=== PATIENT | male | born 1980 | race African-American/Black ===

== ENCOUNTER 2017-07-02 07:06 | Inpatient (IN) | payer MEDICAID ==
[~2017-07-02] VITALS: Ht 177.8 cm; Wt 130.6 kg
[2017-07-02] VITALS (7 sets, daily range): BP systolic 126–168; BP diastolic 71–110
[2017-07-02] MEDS ORDERED: FUROSEMIDE 40MG/4ML VIAL IV STA (07:18)
[2017-07-02] MEDS ORDERED: NITROGLYCERIN 50MG PREMIX 250 ML IV ONE (07:30)
[2017-07-02 07:46] LABS: BASOPHILS % 0.8 % (0.0-2.0); EOSINOPHILS % 3.6 % (0.0-5.0); HEMATOCRIT. 40.6 % (42.0-52.0); HEMOGLOBIN. 13.5 g/dL (14.0-18.0); LYMPHOCYTES % 26.9 % (20.0-50.0); MEAN CORPUSCULAR HEMOGLOBIN 29.3 pg (28.0-32.0); MEAN CORPUSCULAR VOLUME 88.2 fL (80.0-94.0); MEAN PLATELET VOLUME 9.5 fl (7.4-10.4); MONOCYTES % 5.3 % (2.0-8.0); NEUTROPHILS % 63.4 % (40.0-76.0); PLATELET 263 x1000/uL (130-400); RED CELL DISTRIBUTION WIDTH 16.6 % (11.6-14.6)
[2017-07-02 07:54] LABS: INR 1.2; PARTIAL THROMBOPLASTIN TIME 26.2 sec (23.4-31.0); PROTHROMBIN TIME 12.5 sec (9.4-11.6)
[2017-07-02 08:06] LABS: CARBON DIOXIDE 28 mEq/L (21-32); CHLORIDE 106 mEq/L (98-107)
[2017-07-02] MEDS ORDERED: NITROGLYCERIN OINT 1GM/INCH UDPKT TD ONE (08:30)
[2017-07-02] MEDS ORDERED: LIDOCAINE HCL/PF 1% 2ML VIAL ONE (08:47)
[2017-07-02 09:30] LABS: BG BASE EXCESS 2.7 mmol/L (-2.0-2.0); BG BILEVEL POS AIRWAY PRESSURE 15/5; BG CARBOXYHEMOGLOBIN 1.2 % (0.5-1.5); BG DEOXYHEMOGLOBIN 0.2 % (0.0-5.0); BG HCO3 ACT 26.1 mmol/L (22.0-26.0); BG METHEMOGLOBIN 0.5 % (0.0-1.5); BG OXYGEN SATURATION 99.8 % (92.0-98.5); BG OXYHEMOGLOBIN 98.1 % (94.0-97.0); BG PCO2 36.6 mmHg (35.0-45.0); BG PH 7.471 (7.350-7.450); BG PO2 457.9 mmHg (75.0-100.0); BG SAMPLE SITE RIGHT BRACHIAL; BG TOTAL HEMOGLOBIN 16.5 g/dL (12.0-18.0); BG VENT MODE MASK - BIPAP; BG VENT RATE 20 set
[2017-07-02] MEDS ORDERED: METO50TA5 PO (10:39)
[2017-07-02] MEDS ORDERED: POTA10TA11 PO (10:39)
[2017-07-02] MEDS ORDERED: INSLIS SQ (10:39)
[2017-07-02] MEDS ORDERED: SPIR25TA4 PO (10:39)
[2017-07-02] MEDS ORDERED: ATOR10TA69 PO (10:39)
[2017-07-02] MEDS ORDERED: ASPI-1159 PO (10:39)
[2017-07-02] MEDS ORDERED: LISI-604 PO (10:39)
[2017-07-02] MEDS ORDERED: IPRATROPIUM/ALBUTEROL 0.5-3(2.5)MG/3ML NEB HHN PRN (11:30)
[2017-07-02] MEDS: IPRATROPIUM/ALBUTEROL 0.5-3(2.5)MG/3ML NEB HHN SCH ×3 (11:50→21:43)
[2017-07-02] MEDS: INSULIN LISPRO 100 UNITS/ML SUBCUT SCH ×3 (13:00→21:00)
[2017-07-02] MEDS ORDERED: DEXTROSE 50% WATER 50ML SYRINGE IV PRN (13:00)
[2017-07-02] MEDS: FUROSEMIDE 40MG/4ML VIAL IVP SCH (14:07)
[2017-07-02] MEDS: BLOOD SUGAR DIAGNOSTIC STRIP TEST SCH ×2 (18:13→21:11)
[2017-07-02] MEDS ORDERED: ENOXAPARIN 40MG/0.4ML SYR SUBCUT SCH (18:45)
[2017-07-02] MEDS ORDERED: DOCUSATE SODIUM 100MG CAPSULE PO PRN (19:00)
[2017-07-02] MEDS ORDERED: MAGNESIUM/ALUMINUM HYDROXIDE/SIMETHICONE 30ML UDC PO PRN (19:00)
[2017-07-02] MEDS ORDERED: GUAIFENESIN 200MG/10ML SUGAR FREE UDC PO PRN (19:00)
[2017-07-02] MEDS ORDERED: IPRATROPIUM/ALBUTEROL 0.5-3(2.5)MG/3ML NEB INH PRN (19:00)
[2017-07-02] MEDS ORDERED: ONDANSETRON HCL 4MG/2ML VIAL IV PRN (19:00)
[2017-07-02] MEDS ORDERED: DIPHENHYDRAMINE 50MG/ML VIAL IV PRN (19:00)
[2017-07-02] MEDS ORDERED: CLONIDINE 0.1MG TABLET PO PRN (19:00)
[2017-07-02] MEDS ORDERED: ACETAMINOPHEN 650MG SUPP PR PRN (19:00)
[2017-07-02] MEDS ORDERED: NA PHOS,M-B/NA PHOS,DI-BA ENEMA 118ML PR PRN (19:00)
[2017-07-02] MEDS: SODIUM CHLORIDE 0.9% INJ 3ML FLUSH IVF SCH (21:21)
[2017-07-02] MEDS: ENOXAPARIN 30MG/0.3ML SYR SUBCUT SCH (21:21)
[2017-07-03] VITALS (16 sets, daily range): BP systolic 125–158; BP diastolic 55–107
[2017-07-03 00:11] LABS: TROPONIN I 0.21 ng/mL (0.00-0.04)
[2017-07-03] MEDS: IPRATROPIUM/ALBUTEROL 0.5-3(2.5)MG/3ML NEB HHN SCH ×6 (00:40→20:09)
[2017-07-03 06:21] LABS: BASOPHILS % 0.5 % (0.0-2.0); EOSINOPHILS % 2.3 % (0.0-5.0); HEMATOCRIT. 41.9 % (42.0-52.0); HEMOGLOBIN. 14.1 g/dL (14.0-18.0); LYMPHOCYTES % 26.5 % (20.0-50.0); MEAN CORPUSCULAR HEMOGLOBIN 29.2 pg (28.0-32.0); MEAN CORPUSCULAR VOLUME 86.7 fL (80.0-94.0); MEAN PLATELET VOLUME 9.8 fl (7.4-10.4); MONOCYTES % 7.9 % (2.0-8.0); NEUTROPHILS % 62.8 % (40.0-76.0); PLATELET 261 x1000/uL (130-400); RED BLOOD CELL COUNT 4.83 mill/uL (4.7-6.1); RED CELL DISTRIBUTION WIDTH 16.5 % (11.6-14.6)
[2017-07-03] MEDS: SODIUM CHLORIDE 0.9% INJ 3ML FLUSH IVF SCH ×3 (06:47→21:03)
[2017-07-03 07:11] LABS: CHLORIDE 103 mEq/L (98-107)
[2017-07-03 07:22] LABS: CARBON DIOXIDE 29 mEq/L (21-32); CREATINE KINASE 196 IU/L (39-308); HDL CHOLESTEROL 27 mg/dL (40-59); LDL CHOLESTEROL 70 mg/dL (5-100); TROPONIN I 0.21 ng/mL (0.00-0.04)
[2017-07-03] MEDS: BLOOD SUGAR DIAGNOSTIC STRIP TEST SCH ×4 (07:30→21:01)
[2017-07-03] MEDS: INSULIN LISPRO 100 UNITS/ML SUBCUT SCH ×4 (08:00→21:00)
[2017-07-03] MEDS ORDERED: FUROSEMIDE 40MG/4ML VIAL IVP SCH (09:00)
[2017-07-03] MEDS: FUROSEMIDE 40MG/4ML VIAL IVP SCH (09:02)
[2017-07-03] MEDS: POTASSIUM CHLORIDE 20MEQ TABLET SR PO SCH ×2 (09:09→14:16)
[2017-07-03] MEDS: ENOXAPARIN 30MG/0.3ML SYR SUBCUT SCH ×2 (10:21→21:03)
[2017-07-04] VITALS (10 sets, daily range): BP systolic 112–166; BP diastolic 43–110
[2017-07-04] MEDS: IPRATROPIUM/ALBUTEROL 0.5-3(2.5)MG/3ML NEB HHN SCH ×4 (00:14→11:14)
[2017-07-04] MEDS: SODIUM CHLORIDE 0.9% INJ 3ML FLUSH IVF SCH (06:32)
[2017-07-04 06:52] LABS: CLARITY URINE CLEAR (CLEAR); COLOR URINE YELLOW (YELLOW); GLUCOSE URINE NEGATIVE (NEGATIVE); KETONES URINE NEGATIVE (NEGATIVE); LEUKOCYTE ESTERASE URINE NEGATIVE (NEGATIVE); NITRITE URINE NEGATIVE (NEGATIVE); OCCULT BLOOD URINE NEGATIVE (NEGATIVE); PROTEIN URINE NEGATIVE (NEGATIVE); SPECIFIC GRAVITY URINE 1.011 (1.005-1.030)
[2017-07-04 07:06] LABS: *AMPHETAMINES SCREEN URINE NEGATIVE (NEGATIVE); *BARBITURATES SCREEN URINE NEGATIVE (NEGATIVE); *BENZODIAZEPINES SCREEN URINE NEGATIVE (NEGATIVE); *COCAINE SCREEN URINE NEGATIVE (NEGATIVE); CANNABINOID URINE SCREEN PRESUMTIVE POSITIVE (NEGATIVE); METHADONE URINE SCREEN NEGATIVE (NEGATIVE); OPIATES URINE SCREEN NEGATIVE (NEGATIVE); PHENCYCLIDINE URINE SCREEN NEGATIVE (NEGATIVE)
[2017-07-04 07:15] LABS: CARBON DIOXIDE 29 mEq/L (21-32); CHLORIDE 104 mEq/L (98-107); TROPONIN I 0.15 ng/mL (0.00-0.04)
[2017-07-04] MEDS: INSULIN LISPRO 100 UNITS/ML SUBCUT SCH ×2 (08:00→13:00)
[2017-07-04] MEDS: FUROSEMIDE 40MG/4ML VIAL IVP SCH (08:22)
[2017-07-04] MEDS: ENOXAPARIN 30MG/0.3ML SYR SUBCUT SCH (08:22)
== END 2017-07-04 15:00 | disposition home or self-care (01) | DRG 133 ==
LOC: ER 07:31 → ENRESERV 08:03 → 5EST 08:49
PROVIDERS: ADMIT Family Medicine; ATTEND Family Medicine
PROC: 5A09357 Assistance with Respiratory Ventilation, Less than 24 Consecutive Hours, Continuous Positive Airway Pressure (ICD-10-PCS; principal; 2017-07-02)
DX: J96.00 Acute respiratory failure, unspecified whether with hypoxia or hypercapnia (principal); I50.43 Acute on chronic combined systolic (congestive) and diastolic (congestive) heart failure; I42.9 Cardiomyopathy, unspecified; E11.65 Type 2 diabetes mellitus with hyperglycemia; E44.1 Mild protein-calorie malnutrition; J44.9 Chronic obstructive pulmonary disease, unspecified; Z68.41 Body mass index [BMI] 40.0-44.9, adult; I11.0 Hypertensive heart disease with heart failure; E78.5 Hyperlipidemia, unspecified; E87.6 Hypokalemia; F12.90 Cannabis use, unspecified, uncomplicated; F17.210 Nicotine dependence, cigarettes, uncomplicated; Z79.82 Long term (current) use of aspirin; Z79.899 Other long term (current) drug therapy
CPT/HCPCS: 36415; 36600; 71010; 80048; 80053; 80061; 80305; 81003; 82375; 82550; 82805; 82962; 83735; 83880; 84484; 85025; 85610; 85730; 93005; 94640; 94660; 94664; 96374; 99291; J1650; J1815; J1940; J3490; J7620

== ENCOUNTER 2018-08-22 04:38 | Emergency (ER) | payer SELFPAY ==
[~2018-08-22] VITALS: Ht 182.9 cm; Wt 124.9 kg
[~2018-08-22 04:38] MED LIST: ASPI-1159 PO; ATOR10TA69 PO; INSLIS SQ; LISI-604 PO; METO-539 PO; POTA10TA11 PO; SPIR25TA6 PO
[2018-08-22 08:22] LABS: BASOPHILS % 1.3 % (0.0-2.0); HEMATOCRIT. 48.9 % (42.0-52.0); HEMOGLOBIN. 16.5 g/dL (14.0-18.0); LYMPHOCYTES % 18.4 % (20.0-50.0); MEAN CORPUSCULAR VOLUME 89.3 fL (80.0-94.0); MEAN PLATELET VOLUME 8.6 fl (7.4-10.4); MONOCYTES % 4.9 % (2.0-8.0); NEUTROPHILS % 73.4 % (40.0-76.0); PLATELET 277 x1000/uL (130-400); RED BLOOD CELL COUNT 5.48 mill/uL (4.7-6.1); RED CELL DISTRIBUTION WIDTH 17.1 % (11.6-14.6)
[2018-08-22 08:25] LABS: CHLORIDE 107 mEq/L (98-107)
[2018-08-22] MEDS ORDERED: ALBUTEROL (0.083%) 2.5MG/3ML NEB HHN STA (08:35)
[2018-08-22 09:09] VITALS: BP 129/87
== END 2018-08-22 09:11 | disposition home or self-care (01) ==
LOC: ER 07:40
DX: R06.2 Wheezing (principal); Z76.0 Encounter for issue of repeat prescription; I11.0 Hypertensive heart disease with heart failure; I50.9 Heart failure, unspecified; F17.210 Nicotine dependence, cigarettes, uncomplicated; F15.10 Other stimulant abuse, uncomplicated
CPT/HCPCS: 36415; 71045; 99285

== ENCOUNTER 2018-11-17 01:28 | Inpatient (IN) | payer MEDICAID, OTHER ==
[~2018-11-17] VITALS: Ht 177.8 cm; Wt 117.9 kg
[~2018-11-17 01:28] MED LIST changes: -INSLIS SQ; -POTA10TA11 PO
[2018-11-17] MEDS ORDERED: METHYLPREDNISOLONE SOD SUCC 125 MG/2 ML VIAL IV STA (02:14)
[2018-11-17] MEDS ORDERED: IPRATROPIUM BROMIDE (0.02%) 0.5MG/2.5ML NEB HHN STA (02:14)
[2018-11-17] MEDS ORDERED: ALBUTEROL (0.083%) 2.5MG/3ML NEB HHN STA (02:14)
[2018-11-17] MEDS ORDERED: NITROGLYCERIN OINT 1GM/INCH UDPKT TD ONE (02:15)
[2018-11-17] MEDS ORDERED: FUROSEMIDE 40MG/4ML VIAL IV ONE (02:15)
[2018-11-17 02:51] LABS: CHLORIDE 106 mEq/L (98-107)
[2018-11-17 02:52] LABS: EOSINOPHILS % 6.9 % (0.0-5.0); HEMATOCRIT. 49.8 % (42.0-52.0); HEMOGLOBIN. 16.2 g/dL (14.0-18.0); LYMPHOCYTES % 22.4 % (20.0-50.0); MEAN CORPUSCULAR HEMOGLOBIN 28.9 pg (28.0-32.0); MEAN CORPUSCULAR VOLUME 88.9 fL (80.0-94.0); MONOCYTES % 5.9 % (2.0-8.0); NEUTROPHILS % 63.8 % (40.0-76.0); PLATELET 304 x1000/uL (130-400); RED CELL DISTRIBUTION WIDTH 16.8 % (11.6-14.6)
[2018-11-17] MEDS ORDERED: HYDRALAZINE 20MG/ML VIAL IV ONE (08:30)
[2018-11-17] MEDS ORDERED: CLONIDINE 0.1MG TABLET PO PRN (09:00)
[2018-11-17] MEDS ORDERED: ONDANSETRON HCL 4MG/2ML INJ IV PRN (09:00)
[2018-11-17] MEDS ORDERED: ACETAMINOPHEN 325MG TABLET PO PRN (09:00)
[2018-11-17] MEDS ORDERED: IPRATROPIUM/ALBUTEROL 0.5-3(2.5)MG/3ML NEB HHN PRN (09:00)
[2018-11-17 09:05] VITALS: BP 146/89
[2018-11-17] MEDS ORDERED: INSU100I24 SQ (09:56)
[2018-11-17 10:00] VITALS: BP 146/89
[2018-11-17] MEDS ORDERED: METHYLPREDNISOLONE SOD SUCC 40 MG/ML VIAL IV SCH (10:00)
[2018-11-17] MEDS: MAGNESIUM CHLORIDE 64MG TABLET SR PO SCH ×2 (10:30→17:34)
[2018-11-17] MEDS: FUROSEMIDE 40MG/4ML VIAL IVP SCH ×2 (11:20→17:34)
[2018-11-17] MEDS: SPIRONOLACTONE 25MG TABLET PO SCH (11:20)
[2018-11-17] MEDS: LOSARTAN POTASSIUM 50 MG TABLET PO SCH ×2 (11:20→20:44)
[2018-11-17] MEDS: POTASSIUM CHLORIDE 20MEQ TABLET SR PO SCH ×2 (11:20→17:34)
[2018-11-17] MEDS: ENOXAPARIN 30MG/0.3ML SYR SUBCUT SCH ×2 (11:22→20:40)
[2018-11-17] MEDS: IPRATROPIUM/ALBUTEROL 0.5-3(2.5)MG/3ML NEB HHN SCH ×3 (11:59→20:32)
[2018-11-17 12:00] VITALS: BP 146/99
[2018-11-17 16:00] VITALS: BP 140/93
[2018-11-17 20:00] VITALS: BP_SYST 146; BP_SYST 174; BP_DIAS 101; BP_DIAS 60
[2018-11-17] MEDS: CARVEDILOL 12.5MG TABLET PO SCH (20:40)
[2018-11-17 20:50] VITALS: BP 170/100
[2018-11-17] MEDS ORDERED: MONTELUKAST SODIUM 10MG TABLET PO SCH (21:00)
[2018-11-18] VITALS: BP 133/100
[2018-11-18] MEDS: IPRATROPIUM/ALBUTEROL 0.5-3(2.5)MG/3ML NEB HHN SCH ×5 (00:43→16:00)
[2018-11-18 04:00] VITALS: BP_SYST 144; BP_SYST 148; BP_DIAS 102; BP_DIAS 105
[2018-11-18 07:04] LABS: CHLORIDE 103 mEq/L (98-107)
[2018-11-18 07:18] LABS: BASOPHILS % 0.4 % (0.0-2.0); EOSINOPHILS % 1.3 % (0.0-5.0); HEMATOCRIT. 52.3 % (42.0-52.0); HEMOGLOBIN. 17.2 g/dL (14.0-18.0); LYMPHOCYTES % 19.5 % (20.0-50.0); MEAN CORPUSCULAR HEMOGLOBIN 28.9 pg (28.0-32.0); MEAN CORPUSCULAR VOLUME 88.2 fL (80.0-94.0); MEAN PLATELET VOLUME 8.8 fl (7.4-10.4); MONOCYTES % 5.1 % (2.0-8.0); NEUTROPHILS % 73.7 % (40.0-76.0); PLATELET 346 x1000/uL (130-400); RED BLOOD CELL COUNT 5.93 mill/uL (4.7-6.1); RED CELL DISTRIBUTION WIDTH 17.1 % (11.6-14.6)
[2018-11-18 08:00] VITALS: BP 167/101
[2018-11-18] MEDS: FUROSEMIDE 40MG/4ML VIAL IVP SCH (09:05)
[2018-11-18] MEDS: POTASSIUM CHLORIDE 20MEQ TABLET SR PO SCH (09:05)
[2018-11-18] MEDS: SPIRONOLACTONE 25MG TABLET PO SCH (09:06)
[2018-11-18] MEDS: LOSARTAN POTASSIUM 50 MG TABLET PO SCH (09:06)
[2018-11-18] MEDS: CARVEDILOL 12.5MG TABLET PO SCH (09:06)
[2018-11-18] MEDS: ENOXAPARIN 30MG/0.3ML SYR SUBCUT SCH (09:07)
[2018-11-18] MEDS: MAGNESIUM CHLORIDE 64MG TABLET SR PO SCH (09:14)
[2018-11-18] MEDS ORDERED: AMLODIPINE 5MG TABLET PO SCH (11:00)
[2018-11-18 12:00] VITALS: BP 156/101
[2018-11-18 16:00] VITALS: BP 153/98
[2018-11-18 16:31] VITALS: BP 150/96
[2018-11-18] MEDS ORDERED: CARVEDILOL 25MG TABLET PO SCH (21:00)
[2018-11-19] MEDS ORDERED: SPIRONOLACTONE 50MG TABLET PO SCH (09:00)
== END 2018-11-18 17:10 | disposition home or self-care (01) | DRG 194 ==
LOC: ER 01:28 → 8WST 05:37 → EDBEDREQ 05:38 → EDBEDREQTM 05:38 → ENRESERV 07:14 → CANRESERV 07:14 → ENRESERV 07:58
PROVIDERS: ADMIT Internal Medicine; ATTEND Internal Medicine
DX: I11.0 Hypertensive heart disease with heart failure (principal); J84.9 Interstitial pulmonary disease, unspecified; I42.9 Cardiomyopathy, unspecified; J44.1 Chronic obstructive pulmonary disease with (acute) exacerbation; R65.10 Systemic inflammatory response syndrome (SIRS) of non-infectious origin without acute organ dysfunction; E11.9 Type 2 diabetes mellitus without complications; I50.23 Acute on chronic systolic (congestive) heart failure; E66.9 Obesity, unspecified; E87.6 Hypokalemia; Z79.899 Other long term (current) drug therapy; Z79.82 Long term (current) use of aspirin; Z71.3 Dietary counseling and surveillance; Z87.891 Personal history of nicotine dependence; Z68.37 Body mass index [BMI] 37.0-37.9, adult
CPT/HCPCS: 36415; 71045; 80048; 80061; 82962; 83036; 83735; 83880; 84443; 84484; 93005; 93306; 94640; 96374; 96375; 99285; J0360; J1650; J1940; J2920; J2930; J7611; J7620